=== PATIENT | female | born 1960 | race African-American/Black ===

== ENCOUNTER 2020-03-11 18:13 | Emergency (ER) | payer MEDICARE, MEDICAID ==
[~2020-03-11] VITALS: Ht 160 cm; Wt 53.0 kg
[~2020-03-11 18:13] MED LIST: norvasc
[2020-03-11] MEDS ORDERED: SODIUM CHLORIDE 0.9% 1,000 ML IV ONE (22:40)
[2020-03-11] MEDS ORDERED: MORPHINE SULFATE 4 MG/ML CPJ (NOT FOR IM USE) IV STA (22:40)
[2020-03-11] MEDS ORDERED: ONDANSETRON HCL 4MG/2ML INJ IV STA (22:40)
[2020-03-11] MEDS ORDERED: KETOROLAC 60MG/2ML VIAL IM ONE (22:45)
[2020-03-11 23:35] LABS: HEMATOCRIT. 40.9 % (36.0-48.0); HEMOGLOBIN. 13.8 g/dL (12.0-16.0); MEAN CORPUSCULAR HEMOGLOBIN 29.3 pg (28.0-32.0); MEAN PLATELET VOLUME 9.2 fl (7.4-10.4); PLATELET 294 x1000/uL (130-400)
[2020-03-11 23:36] LABS: CHLORIDE 103 mEq/L (98-107)
[2020-03-11 23:38] LABS: INR 1.1; PROTHROMBIN TIME 11.6 sec (9.6-11.0)
[2020-03-11 23:41] LABS: ETHANOL BLOOD < 10 mg/dL
[2020-03-12 00:01] LABS: PLATELET ESTIMATE NORMAL
[2020-03-12 01:58] VITALS: BP 135/68
== END 2020-03-12 02:08 | disposition home or self-care (01) ==
LOC: ER 18:13
DX: R10.9 Unspecified abdominal pain (principal); J45.909 Unspecified asthma, uncomplicated; I10 Essential (primary) hypertension; M54.9 Dorsalgia, unspecified
CPT/HCPCS: 36415; 74176; 80053; 80320; 83690; 85025; 85610; 93005; 96361; 96372; 96374; 96375; 99285; J1885; J2270; J2405; J7030; G0480